=== PATIENT | female | born 1985 | race American Indian/Alaskan Native ===

== ENCOUNTER 2019-03-17 07:37 | Emergency (ER) | payer BC, OTHER ==
[2019-03-17] MEDS ORDERED: ASPIRIN 325 MG TAB PO ONE (07:54)
[2019-03-17 08:18] LABS: Basophils # (Auto) 0.1 K/mm3 (0.0-0.1); Basophils % (Auto) 0.7 % (0.0-1.8); Eosinophils # (Auto) 0.2 K/mm3 (0.0-0.4); Hematocrit 35.9 % (30.3-42.9); Hemoglobin 11.5 gm/dl (10.1-14.3); Lymphocytes # (Auto) 2.4 K/mm3 (1.2-5.4); Lymphocytes % (Auto) 27.9 % (13.4-35.0); Mean Corpuscular HGB Conc 32 % (30-34); Mean Corpuscular Volume 76 fl (79-97); Monocytes # (Auto) 0.6 K/mm3 (0.0-0.8); Monocytes % (Auto) 6.5 % (0.0-7.3); Platelet Count 379 K/mm3 (140-440); Red Blood Count 4.73 M/mm3 (3.65-5.03); Red Cell Distribution Width 15.7 % (13.2-15.2)
--- NOTE | 2019-03-17 08:24 | XRay Report ---
CHEST 1 VIEW 03/17/2019 8:16 AM INDICATION / CLINICAL INFORMATION: Chest pain for one day. COMPARISON: None available. FINDINGS: SUPPORT DEVICES: None. HEART / MEDIASTINUM: No significant abnormality. LUNGS / PLEURA: No significant pulmonary or pleural abnormality. No pneumothorax. ADDITIONAL FINDINGS: No significant additional findings. IMPRESSION: 1. No acute abnormality of the chest. Signer Name: Raúl Fuller MD Signed: 03/17/2019 8:20 AM Workstation Name: [id number]
[2019-03-17 08:40] LABS: BUN/Creatinine Ratio 10; Blood Urea Nitrogen 8 mg/dL (7-17); Hemolysis Index 19
--- NOTE | 2019-03-17 09:27 | Emergency Department Report ---
ED Chest Pain HPI - General Chief Complaint: Chest Pain Stated Complaint: CHEST PAIN Source: patient Mode of arrival: Ambulatory Limitations: No Limitations - History of Present Illness Initial Comments: 33 year old -[place] female presents to the emergency room complaining of chest pain to the upper mid chest area that sharp that started last night. Patient states that this morning she had chest tightness. Patient denies any past medical history. Patient does report that she had been climbing up steps and doing housework vacuuming and cleaning. She denies any shortness of breath no nausea no vomiting no radiation to the jaw back shoulder or arm. MD Complaint: chest pain Onset/Timin -: days(s) Onset: during exertion Pain Location: substernal Pain Radiation: none Severity: mild Quality: tightness Consistency: intermittent Worsens With: nothing - Related Data Previous Rx's Medication Instructions Recorded Last Taken Type oxyCODONE /ACETAMINOPHEN [Percocet 1 - 2 tab PO Q6HR PRN #30 tablet 03/24/14 Unknown Rx 5/325] Docusate Sodium [Colace] 100 mg PO BID PRN #60 capsule 03/25/14 Unknown Rx Ferrous Sulfate [Feosol 325 MG tab] 325 mg PO TID #120 tablet 03/25/14 Unknown Rx Ibuprofen [Motrin 600 MG tab] 600 mg PO Q6H PRN #30 tablet 03/25/14 Unknown Rx Allergies Allergy/AdvReac Type Severity Reaction Status Date / Time No Known Allergies Allergy Unverified 03/23/14 06:29 Heart Score - HEART Score History: Slightly suspicious EKG: Normal Age: < 45 Risk factors: No known risk factors Troponin: < normal limit HEART Score: 0 ED Review of Systems ROS: Stated complaint: CHEST PAIN Other details as noted in HPI ED Past Medical Hx - Past Medical History Previous Medical History?: No Hx Hypertension: No Hx Congestive Heart Failure: No Hx Diabetes: No Hx Deep Vein Thrombosis: No Hx Renal Disease: No Hx Sickle Cell Disease: No Hx Seizures: No Hx Asthma: No Hx COPD: No Hx HIV: No - Surgical History Past Surgical History?: Yes Additional Surgical History: C section - Social History Smoking Status: Never Smoker - Medications Home Medications: Home Medications Medication Instructions Recorded Confirmed Last Taken Type oxyCODONE /ACETAMINOPHEN [Percocet 1 - 2 tab PO Q6HR PRN #30 tablet 03/24/14 Unknown Rx 5/325] Docusate Sodium [Colace] 100 mg PO BID PRN #60 capsule 03/25/14 Unknown Rx Ferrous Sulfate [Feosol 325 MG tab] 325 mg PO TID #120 tablet 03/25/14 Unknown Rx Ibuprofen [Motrin 600 MG tab] 600 mg PO Q6H PRN #30 tablet 03/25/14 Unknown Rx ED Physical Exam - General Limitations: No Limitations ED Course Vital Signs 03/17/19 03/17/19 07:40 12:55 Temperature 99.3 F 98.3 F Pulse Rate 92 H 82 Respiratory 16 16 Rate Blood Pressure 119/81 119/75 O2 Sat by Pulse 99 100 Oximetry KANNAN score - Kannan Score Age > 65: (0) No Aspirin use within the Past 7 Days: (0) No 3 or more CAD Risk Factors: (0) No 2 or more Angina events in past 24 hrs: (0) No Known CAD with more than 50% Stenosis: (0) No Elevated Cardiac Markers: (0) No ST Deviation Greater than 0.5mm: (0) No KANNAN Score: 0 ED Medical Decision Making - Lab Data Result diagrams: 03/17/19 08:00 03/17/19 08:00 Laboratory Tests 03/17/19 03/17/19 03/17/19 08:00 08:00 11:31 WBC 8.6 RBC 4.73 Hgb 11.5 Hct 35.9 MCV 76 L MCH 24 L MCHC 32 RDW 15.7 H Plt Count 379 Lymph % (Auto) 27.9 [place]lin % (Auto) 6.5 Eos % (Auto) 2.0 Baso % (Auto) 0.7 Lymph # 2.4 [place]lin # 0.6 Eos # 0.2 Baso # 0.1 Seg Neutrophils % 62.9 Seg Neutrophils # 5.4 Sodium 138 Potassium 3.8 Chloride 104.5 Carbon Dioxide 18 L Anion Gap 19 BUN 8 Creatinine 0.8 Estimated GFR > 60 BUN/Creatinine Ratio 10 Glucose 92 Calcium 9.0 Troponin T < 0.010 < 0.010 - Radiology Data Radiology results: report reviewed Patient: CRUZITO FREGOSO MR#: [id number] : 1985 Acct:[id number] Age/Sex: 33 / F ADM Date: 03/17/19 Loc: ED Attending Dr: Ordering Physician: ED MD VICKY Date of Service: 03/17/19 Procedure(s): XR chest 1V ap Accession Number(s): [id number] cc: ED MD VICKY Fluoro Time In Minutes: CHEST 1 VIEW 03/17/2019 8:16 AM INDICATION / CLINICAL INFORMATION: Chest pain for one day. COMPARISON: None available. FINDINGS: SUPPORT DEVICES: None. HEART / MEDIASTINUM: No significant abnormality. LUNGS / PLEURA: No significant pulmonary or pleural abnormality. No pneumothorax. ADDITIONAL FINDINGS: No significant additional findings. IMPRESSION: 1. No acute abnormality of the chest. Signer Name: Raúl Fuller MD Signed: 03/17/2019 8:20 AM Workstation Name: [id number] Transcribed By: MN Dictated By: Raúl Fuller MD Electronically Authenticated By: Raúl Fuller MD Signed Date/Time: 03/17/19819 DD/ 9 TD/TT: - Medical Decision Making 33 year old -[place] female presents to the emergency room complaining of chest pain to the upper mid chest area that sharp that started last night. Patient states that this morning she had chest tightness. Patient denies any past medical history. Patient does report that she had been climbing up steps and doing housework vacuuming and cleaning. She denies any shortness of breath no nausea no vomiting no radiation to the jaw back shoulder or arm. Critical care attestation.: If time is entered above; I have spent that time in minutes in the direct care of this critically ill patient, excluding procedure time. ED Disposition Clinical Impression: Chest wall tenderness, Atypical chest pain Disposition: - TO HOME OR SELFCARE Is pt being admited?: No Does the pt Need Aspirin: No Condition: Stable Instructions: Chest Pain (ED), Costochondritis (ED) Additional Instructions: Chest x-ray normal, EKG normal, cardiac enzymes negative. If you have any further symptoms please follow-up with the dental nurse with her primary care provider. Referrals: PRIMARY CAREMD [Primary Care Provider] - 3-5 Days THERESA CHOE MD [Staff Physician] - 3-5 Days Forms: Work/School Release Form(ED)
[2019-03-17 12:57] VITALS: BP 119/75
== END 2019-03-17 13:41 | disposition home or self-care (01) ==
LOC: ED 07:37
DX: R07.89 Other chest pain (principal); Z98.890 Other specified postprocedural states; Z79.1 Long term (current) use of non-steroidal anti-inflammatories (NSAID); Z79.899 Other long term (current) drug therapy
CPT/HCPCS: 36415; 71045; 80048; 84484; 85025; 93005; 93010